=== PATIENT | female | born 1990 | race Caucasian/White ===

== ENCOUNTER 2017-10-18 21:45 | Emergency (ER) | payer OTHER ==
[2017-10-19] MEDS: IBUPROFEN 600 MG TAB PO (04:32)
== END 2017-10-19 06:00 | disposition home or self-care (01) ==
LOC: FTE 21:45
DX: M25.561 Pain in right knee (principal)
CPT/HCPCS: 29505; 73564; 99283-25

== ENCOUNTER 2018-06-05 13:54 | Outpatient (CLI) | payer OTHER | END 2018-06-05 17:00 | disposition home or self-care (01) | LOC: OBT 13:54 → L-D 13:55 → OBT 17:00 | DX: O26.893 Other specified pregnancy related conditions, third trimester (principal); Z3A.29 29 weeks gestation of pregnancy; R10.2 Pelvic and perineal pain | CPT/HCPCS: 76818 ==

== ENCOUNTER 2018-07-29 05:45 | Inpatient (IN) | payer OTHER ==
[2018-07-29] MEDS ORDERED: METHYLERGONOVINE 0.2 MG INJ IM ×2 (06:30→18:00)
[2018-07-29] MEDS ORDERED: LIDOCAINE 1% (MPF) 30 ML INJ INJ (06:30)
[2018-07-29] MEDS ORDERED: MISOPROSTOL 200 MCG TAB PR ×2 (06:30→18:00)
[2018-07-29] MEDS ORDERED: BUTORPHANOL 2 MG INJ IV (06:30)
[2018-07-29] MEDS ORDERED: OXYTOCIN 30 UNITS/LR 500 ML IV ×2 (06:30→18:00)
[2018-07-29] MEDS ORDERED: CARBOPROST 250 MCG INJ IM ×2 (06:30→18:00)
[2018-07-29 06:35] LABS: ADD MAN DIFF? NO
[2018-07-29] MEDS: LACTATED RINGER'S 1,000 ML IV ×3 (06:38→13:44)
[2018-07-29] MEDS: AMPICILLIN 2 GM/NS (PMX) 100 ML IV (06:38)
[2018-07-29 06:47] LABS: BASOPHIL # 0.1 10^3/ul (0.0-0.1); BASOPHILS % 0.5 % (0.0-2.0); EOSINOPHILS # 0.2 10^3/ul (0.0-0.5); EOSINOPHILS % 0.8 % (0.0-7.0); HEMATOCRIT 40.6 % (37.0-47.0); HEMOGLOBIN 13.8 g/dl (12.0-16.0); LYMPHOCYTES # 3.6 10^3/ul (0.8-2.9); LYMPHOCYTES % 17.7 % (15.0-51.0); MEAN CORPUSCULAR HEMOGLOBIN 31.5 pg (29.0-33.0); MEAN CORPUSCULAR VOLUME 92.7 fl (82.0-101.0); MEAN PLATELET VOLUME 11.5 fl (7.4-10.4); MONOCYTE # 1.4 10^3/ul (0.3-0.9); MONOCYTES % 6.8 % (0.0-11.0); NEUTROPHIL # 14.7 10^3/ul (1.6-7.5); NEUTROPHILS % 72.8 % (39.0-77.0); PLATELET COUNT 208 10^3/UL (140-415); RED BLOOD COUNT 4.38 10^6/ul (4.20-5.40); RED CELL DISTRIBUTION WIDTH 12.6 % (11.5-14.5)
[2018-07-29 06:47] LABS: WHITE BLOOD COUNT 20.2 10^3/ul (4.8-10.8)
[2018-07-29 07:05] LABS: PARTIAL THROMBOPLASTIN TIME 27.8 Sec (23.0-35.0)
[2018-07-29 07:08] LABS: INR 0.88; PT RATIO 0.9
[2018-07-29] MEDS ORDERED: HYDROmorphONE 0.5 MG/0.5 ML SYG IV ×2 (07:30)
[2018-07-29] MEDS ORDERED: DIPHENHYDRAMINE 50 MG INJ IV (07:30)
[2018-07-29] MEDS ORDERED: ONDANSETRON 4 MG INJ IV ×2 (07:30→18:00)
[2018-07-29] MEDS ORDERED: NALOXONE (0.4 MG/ML) INJ IV (07:30)
[2018-07-29] MEDS ORDERED: KETOROLAC 30 MG INJ IV (07:30)
[2018-07-29] MEDS: AMPICILLIN 1 GM/NS (PMX) 50 ML IV ×4 (10:40→22:30)
[2018-07-29 15:09] LABS: RAPID PLASMA REAGIN NONREACTIVE (NR)
[2018-07-29] MEDS: FENTAnyl 2MCG/ML-ROPIV 0.2% 100 ML BAG EPI (15:36)
[2018-07-29] MEDS ORDERED: NACL 0.9% 3 ML SYG IV (18:00)
[2018-07-29] MEDS ORDERED: ACETAMINOPHEN 325 MG TAB PO (18:00)
[2018-07-29] MEDS ORDERED: SENNA/DOCUSATE NA (8.6MG/50MG) TAB PO (18:00)
[2018-07-29] MEDS ORDERED: DIBUCAINE 1% 30 GM OINT TOP (18:00)
[2018-07-29] MEDS: OXYTOCIN 30 UNITS/LR 500 ML IV ×3 (18:12→23:21)
[2018-07-29] MEDS: OXYCODONE/ASPIRIN (4.88/325) TAB PO (21:11)
[2018-07-29] MEDS: LANOLIN 7 GM TUBE TOP (21:53)
[2018-07-29] MEDS: SENNA/DOCUSATE NA (8.6MG/50MG) TAB PO (21:53)
[2018-07-29] MEDS: BENZOCAINE 20% 56 ML SPRAY TOP (21:56)
[2018-07-29] MEDS: WITCH HAZEL/GLYCERIN PAD PR (23:18)
[2018-07-30] MEDS: AMPICILLIN 1 GM/NS (PMX) 50 ML IV (02:30)
[2018-07-30] MEDS: OXYCODONE/ASPIRIN (4.88/325) TAB PO (03:56)
[2018-07-30] MEDS: IBUPROFEN 600 MG TAB PO ×4 (05:44→23:50)
[2018-07-30 08:09] LABS: ADD MAN DIFF? NO
[2018-07-30 08:15] LABS: WHITE BLOOD COUNT 28.4 10^3/ul (4.8-10.8)
[2018-07-30 08:15] LABS: ABNORMAL IP MESSAGE 1; BASOPHIL # 0.1 10^3/ul (0.0-0.1); BASOPHILS % 0.3 % (0.0-2.0); EOSINOPHILS # 0.1 10^3/ul (0.0-0.5); EOSINOPHILS % 0.3 % (0.0-7.0); HEMOGLOBIN 12.5 g/dl (12.0-16.0); LYMPHOCYTES # 3.2 10^3/ul (0.8-2.9); LYMPHOCYTES % 11.2 % (15.0-51.0); MEAN CORPUSCULAR HEMOGLOBIN 31.4 pg (29.0-33.0); MEAN CORPUSCULAR HGB CONC 33.8 g/dl (32.0-37.0); MEAN PLATELET VOLUME 11.6 fl (7.4-10.4); MONOCYTE # 1.8 10^3/ul (0.3-0.9); MONOCYTES % 6.3 % (0.0-11.0); NEUTROPHIL # 22.9 10^3/ul (1.6-7.5); NEUTROPHILS % 80.7 % (39.0-77.0); PLATELET COUNT 187 10^3/UL (140-415); RED BLOOD COUNT 3.98 10^6/ul (4.20-5.40); RED CELL DISTRIBUTION WIDTH 12.6 % (11.5-14.5)
[2018-07-30 08:20] LABS: POSITIVE DIFF @See below
[2018-07-30] MEDS: SENNA/DOCUSATE NA (8.6MG/50MG) TAB PO ×2 (09:09→20:49)
[2018-07-31] MEDS: IBUPROFEN 600 MG TAB PO ×2 (05:36→11:57)
[2018-07-31 07:34] LABS: ADD MAN DIFF? NO
[2018-07-31 07:47] LABS: BASOPHIL # 0.1 10^3/ul (0.0-0.1); BASOPHILS % 0.7 % (0.0-2.0); EOSINOPHILS # 0.3 10^3/ul (0.0-0.5); EOSINOPHILS % 2.1 % (0.0-7.0); HEMATOCRIT 38.7 % (37.0-47.0); HEMOGLOBIN 12.9 g/dl (12.0-16.0); LYMPHOCYTES # 3.3 10^3/ul (0.8-2.9); LYMPHOCYTES % 20.8 % (15.0-51.0); MEAN CORPUSCULAR HEMOGLOBIN 31.7 pg (29.0-33.0); MEAN CORPUSCULAR HGB CONC 33.3 g/dl (32.0-37.0); MEAN CORPUSCULAR VOLUME 95.1 fl (82.0-101.0); MEAN PLATELET VOLUME 11.5 fl (7.4-10.4); MONOCYTE # 1.1 10^3/ul (0.3-0.9); MONOCYTES % 6.7 % (0.0-11.0); NEUTROPHIL # 10.9 10^3/ul (1.6-7.5); PLATELET COUNT 212 10^3/UL (140-415); RED BLOOD COUNT 4.07 10^6/ul (4.20-5.40); RED CELL DISTRIBUTION WIDTH 12.9 % (11.5-14.5)
[2018-07-31] MEDS: SENNA/DOCUSATE NA (8.6MG/50MG) TAB PO (08:42)
== END 2018-07-31 13:30 | disposition home or self-care (01) | DRG 807 ==
LOC: OBT 05:45 → L-D 05:46 → OBT 06:18 → L-D 06:18 → PP1 21:20
PROVIDERS: Obstetrics & Gynecology
PROC: 10E0XZZ Delivery of Products of Conception, External Approach (ICD-10-PCS; principal; 2018-07-29)
DX: O80 Encounter for full-term uncomplicated delivery (principal); Z37.0 Single live birth; Z3A.37 37 weeks gestation of pregnancy
CPT/HCPCS: 62319; 85025; 85610; 85730; 86592; 86850; 86900; 86901; 90686